=== PATIENT | female | born 1995 | race Caucasian/White ===

== ENCOUNTER 2018-07-30 19:36 | Emergency (ER) | payer OTHER ==
[~2018-07-30] VITALS: Ht 170.2 cm; Wt 80.7 kg
[2018-07-30 19:52] VITALS: BP 104/72
[2018-07-30] MEDS ORDERED: HYDROcodone/APAP 5/325MG 1 TAB TABLET ONE (20:26)
[2018-07-30] MEDS ORDERED: HYDROcodone/APAP 5/325MG 1 TAB TABLET PO ONE (20:30)
[2018-07-30] MEDS ORDERED: HYDR-3165 PO (20:40)
--- NOTE | 2018-07-30 20:41 | PHYS DOC ---
Past History Past Medical History: No Pertinent History Past Surgical History: , Tonsillectomy Alcohol Use: Rarely Adult General Chief Complaint Chief Complaint: HAND PROBLEM HPI HPI Patient is a 22-year-old female who presents with complaint of right hand pain after she punched a wooden door. Patient rates the pain as moderate in her hand. She denies any other injuries. Injury occurred about an hour prior to arrival. Review of Systems Review of Systems Constitutional: Denies fever or chills [] Respiratory: Denies cough or shortness of breath [] Cardiovascular: No additional information not addressed in HPI [] Musculoskeletal: Positive right hand pain [] Current Medications Current Medications Current Medications Medications (Trade) Dose Ordered Sig/Devin Start Time Stop Time Status Last Admin Dose Admin Acetaminophen/ Hydrocodone Bitart (Lortab 5/325) 1 tab STK-MED ONCE 07/30/18 20:26 07/30/18 20:27 DC Allergies Allergies Allergies Uncoded Allergies Type Severity Reaction Last Updated Verified EGGPLANT Allergy Unknown 07/30/18 Physical Exam Physical Exam Constitutional: Well developed, well nourished, no acute distress, non-toxic appearance. [] Cardiovascular:Heart rate regular rhythm, no murmur [] Lungs & Thorax: Bilateral breath sounds clear to auscultation [] Extremities: Examination of right hand demonstrates soft tissue swelling and tenderness over the distal aspect of the fifth metacarpal. [] Neurologic: Alert and oriented X 3, no focal deficits noted. [] Current Patient Data Vital Signs Vital Signs Date Time Temp Pulse Resp B/P (MAP) Pulse Ox O2 Delivery O2 Flow Rate FiO2 07/30/18 19:52 99.2 18 93 Room Air EKG EKG [] Radiology/Procedures Radiology/Procedures [] Impressions: X-ray of right hand demonstrates a nondisplaced fifth metacarpal fracture with approximately 30 angulation. Course & Med Decision Making Course & Med Decision Making Pertinent Labs and Imaging studies reviewed. (See chart for details) X-ray of patient's right hand was obtained demonstrating fracture. Findings were reviewed with patient. Patient placed in ulnar gutter splint by ER nurse. Patient's hand was evaluated post splint placement and demonstrates good splint alignment. Patient has good cap refill to the nailbeds. Dragon Disclaimer Dragon Disclaimer This electronic medical record was generated, in whole or in part, using a voice recognition dictation system. Departure Departure: Impression: Primary Impression: Leona fracture Disposition: 01 HOME, SELF-CARE Condition: STABLE Referrals: NOMI PISANO (PCP) Patient Instructions: [facility] Fracture Scripts Hydrocodone Bit/Acetaminophen (NORCO 5-325 TABLET) 1 Each Tablet 1 TAB PO PRN Q6HRS PRN for PAIN, #15 TAB 0 Refills Prov: JULIETH MACEDO Jr. DO 07/30/18 Problem Qualifiers Primary Impression: Boxkishore fracture Encounter type: initial encounter Fracture type: closed Qualified Codes: S62.339A - Displaced fracture of neck of unspecified metacarpal bone, initial encounter for closed fracture JULIETH MACEDO Jr. DO Jul 30, 2018 20:41
--- NOTE | 2018-07-31 08:02 | RAD ---
Right hand, 3 views, 07/30/2018: HISTORY: Injury, pain There is a fracture of the distal fifth metacarpal. There is slight impaction at the fracture site with mild volar angulation of the distal fracture fragment. There is mild associated soft tissue swelling. No other fracture or dislocation is identified. IMPRESSION: Acute fracture of the distal fifth metacarpal. Electronically signed by: Ben Barba MD (07/31/2018 8:00 AM) [facility]
== END 2018-07-30 20:46 | disposition home or self-care (01) ==
LOC: ER 19:36
DX: S62.336A Displaced fracture of neck of fifth metacarpal bone, right hand, initial encounter for closed fracture (principal); Z91.012 Allergy to eggs; W22.8XXA Striking against or struck by other objects, initial encounter; Y93.89 Activity, other specified; Y92.89 Other specified places as the place of occurrence of the external cause; Y99.8 Other external cause status
CPT/HCPCS: 29125; 73130; 99284